=== PATIENT | male | born 1985 | race Caucasian/White ===

== ENCOUNTER 2016-09-13 16:45 | Emergency (ER) | payer BC ==
[~2016-09-13] VITALS: Ht 180.3 cm; Wt 120.5 kg
[~2016-09-13 16:45] MED LIST: NO HOME MEDICATIONS
[2016-09-13 16:50] VITALS: TEMP 99.2
[2016-09-13] MEDS ORDERED: CEPHALEXIN500 M1 PO (19:24)
[2016-09-13 19:48] VITALS: BP 120/77; PULSE 76
== END 2016-09-13 19:49 | disposition home or self-care (01) ==
LOC: COL.ER 16:45
DX: S61.211A Laceration without foreign body of left index finger without damage to nail, initial encounter (principal); Z23 Encounter for immunization; S61.012A Laceration without foreign body of left thumb without damage to nail, initial encounter; W31.2XXA Contact with powered woodworking and forming machines, initial encounter; Y92.009 Unspecified place in unspecified non-institutional (private) residence as the place of occurrence of the external cause

== ENCOUNTER 2016-09-22 13:55 | Emergency (ER) | payer BC ==
[~2016-09-22 13:55] MED LIST changes: +CEPHALEXIN500 M1 PO
[2016-09-22 14:03] VITALS: BP 129/74; PULSE 85; TEMP 98.6
== END 2016-09-22 14:12 | disposition home or self-care (01) ==
LOC: COL.ER 13:55
DX: Z48.02 Encounter for removal of sutures (principal)